=== PATIENT | male | born 1970 | race American Indian/Alaskan Native ===

== ENCOUNTER 2016-09-12 15:31 | Emergency (ER) | payer MEDICAID ==
[2016-09-12 15:48] VITALS: BP 136/90
[2016-09-12 16:11] LABS: Basophils % (Auto) 0.5 % (0.0-1.8); Eosinophils % (Auto) 3.5 % (0.0-4.3); Hematocrit 40.7 % (35.5-45.6); Hemoglobin 13.6 gm/dl (11.8-15.2); Mean Corpuscular HGB Conc 34 % (32-34); Mean Corpuscular Hemoglobin 29 pg (28-32); Mean Corpuscular Volume 87 fl (84-94); Platelet Count 202 K/mm3 (140-440); Red Blood Count 4.66 M/mm3 (3.65-5.03); Red Cell Distribution Width 14.1 % (13.2-15.2)
--- NOTE | 2016-09-12 16:39 | XRay Report ---
ROUTINE CHEST, TWO VIEWS: PA and lateral views demonstrate the heart and mediastinal contour to be of normal size and shape. The lungs are clear and fully expanded and the soft tissues and bony structures are normal. IMPRESSION: Normal study.
[2016-09-12 16:45] LABS: Anion Gap 21 mmol/L; Blood Urea Nitrogen 12 mg/dL (9-20); Calcium 9.3 mg/dL (8.4-10.2); Carbon Dioxide 26 mmol/L (22-30); Chloride 99.7 mmol/L (98-107); Glucose 150 mg/dL (75-100); Potassium 4.2 mmol/L (3.6-5.0); Sodium 142 mmol/L (137-145)
--- NOTE | 2016-09-14 01:41 | ED Elopement Review ---
ED Pt Elopement review - Results review Lab results: Laboratory Tests 09/12/16 09/12/16 15:59 15:59 WBC 8.0 RBC 4.66 Hgb 13.6 Hct 40.7 MCV 87 MCH 29 MCHC 34 RDW 14.1 Plt Count 202 Lymph % (Auto) 29.1 Bracken % (Auto) 7.9 H Eos % (Auto) 3.5 Baso % (Auto) 0.5 Lymph # 2.3 [place]acken # 0.6 Eos # 0.3 Baso # 0.0 Seg Neutrophils % 59.0 Seg Neutrophils # 4.7 Sodium 142 Potassium 4.2 Chloride 99.7 Carbon Dioxide 26 Anion Gap 21 BUN 12 Creatinine 0.8 Estimated GFR > 60 BUN/Creatinine Ratio 15.00 Glucose 150 H Calcium 9.3 Troponin T < 0.010 - Call Back decision Pt Call Back Decision: No action required
== END 2016-09-12 18:50 | disposition left against medical advice (07) ==
LOC: ED 15:31
DX: R06.02 Shortness of breath (principal); R07.9 Chest pain, unspecified; Z91.040 Latex allergy status; Z88.0 Allergy status to penicillin; Z88.8 Allergy status to other drugs, medicaments and biological substances
CPT/HCPCS: 36415; 71020; 80048; 84484; 85025; 93005; 93010